=== PATIENT | female | born 1970 | race Native Hawaiian/Other Pacific Islander ===

== ENCOUNTER 2016-12-29 08:55 | Outpatient (CLI) | payer OTHER ==
[~2016-12-29 08:55] MED LIST: CLARITIN10 M1 PO; COLC0.6T6 PO; DESONIDE0.05 % EX; DOXYCYCL HYC100 M4 PO; EPIPEN 2-PAK0.3 MG IJ; FLUC150T PO; GABA300C2 PO; ISOSORB DIN30 MG OR; K-TAB20 MEQ PO; LACTSYP31 PO; MAXAIR AUTOH200 MCG IN; MEDROL DOSEPAK4 MG PO; METO10TA26 PO; METRONIDAZOL0.751 EX; NITROSTAT0.4 MG SL; ONDA4TAB3 PO; PANT40TA PO; PRILOSEC40 MG OR; PROM25TA52 PO; PULMICORT1 MG/2 ML IN; RANI150T78 PO; ROBAXIN500 MG PO; SIMV20TA2 PO; SINGULAIR10 MG PO; SOMA250 MG OR; TERCONAZOLE0.4 % VA; TRAM50TA PO; XOPENEX HFA IN; XOPENEX1.25 MG/3 IN; Z-PAK PO
[2016-12-29 09:20] LABS: PLATELET COUNT 235 K/uL (152-353)
[2016-12-29 09:40] LABS: POTASSIUM 3.6 mmol/L (3.6-5.2); SODIUM 139 mmol/L (136-145)
== END 2016-12-29 09:55 | disposition home or self-care (01) ==
LOC: LABW 08:55
PROVIDERS: Family Medicine
DX: N18.3 Chronic kidney disease, stage 3 (moderate) (principal); R21 Rash and other nonspecific skin eruption; E55.9 Vitamin D deficiency, unspecified; E78.00 Pure hypercholesterolemia, unspecified
CPT/HCPCS: 36415; 80053; 80061; 81000; 82306; 84439; 84443; 84550; 85027

== ENCOUNTER 2017-02-23 10:06 | Outpatient (CLI) | payer OTHER ==
[2017-02-23 10:20] LABS: PLATELET COUNT 225 K/uL (152-353)
[2017-02-23 10:58] LABS: POTASSIUM 3.5 mmol/L (3.6-5.2); SODIUM 140 mmol/L (136-145)
== END 2017-02-23 19:38 | disposition home or self-care (01) ==
LOC: LABW 10:06
PROVIDERS: Internal Medicine Nephrology
DX: N18.3 Chronic kidney disease, stage 3 (moderate) (principal); E56.8 Deficiency of other vitamins
CPT/HCPCS: 36415; 80053; 81000; 82306; 82570; 83970; 84100; 84155; 85027

== ENCOUNTER 2017-03-02 07:54 | Outpatient (CLI) | payer OTHER ==
[2017-03-02 08:32] LABS: PLATELET COUNT 204 K/uL (152-353)
[2017-03-02 08:39] LABS: POTASSIUM 3.3 mmol/L (3.6-5.2); SODIUM 138 mmol/L (136-145)
== END 2017-03-02 19:06 | disposition home or self-care (01) ==
LOC: LABW 07:54
PROVIDERS: Internal Medicine
DX: R68.2 Dry mouth, unspecified (principal); E87.6 Hypokalemia
CPT/HCPCS: 36415; 80053; 84443; 85027

== ENCOUNTER 2017-04-03 10:03 | Outpatient (CLI) | payer OTHER | END 2017-04-03 11:30 | disposition home or self-care (01) | LOC: RESP 10:03 | DX: I34.1 Nonrheumatic mitral (valve) prolapse (principal); R07.89 Other chest pain | CPT/HCPCS: 93306 ==

== ENCOUNTER 2017-04-11 16:09 | Outpatient (CLI) | payer OTHER | END 2017-04-11 19:35 | disposition home or self-care (01) | LOC: LABW 16:09 | DX: K52.89 Other specified noninfective gastroenteritis and colitis (principal); R11.10 Vomiting, unspecified; R19.7 Diarrhea, unspecified | CPT/HCPCS: 82272; 87045; 87205; 87328; 87329; 87493; 87798; 87899 ==

== ENCOUNTER 2017-04-16 10:46 | Outpatient (CLI) | payer OTHER | END 2017-04-16 11:50 | disposition home or self-care (01) | LOC: RAD 10:46 | DX: M54.6 Pain in thoracic spine (principal); M54.5 Low back pain ==

== ENCOUNTER 2017-05-01 08:09 | Outpatient (CLI) | payer OTHER | END 2017-05-01 19:09 | disposition home or self-care (01) | LOC: NM 08:09 | DX: R94.39 Abnormal result of other cardiovascular function study (principal) | CPT/HCPCS: A9500; J2785 ==

== ENCOUNTER 2017-06-08 09:19 | Outpatient (CLI) | payer OTHER ==
[2017-06-08 11:04] LABS: POTASSIUM 3.5 mmol/L (3.6-5.2); SODIUM 141 mmol/L (136-145)
[2017-06-08 11:10] LABS: PLATELET COUNT 213 K/uL (152-353)
== END 2017-06-08 19:09 | disposition home or self-care (01) ==
LOC: LAB 09:19
PROVIDERS: Physician Assistant
DX: E78.4 Other hyperlipidemia (principal); R11.0 Nausea; R73.9 Hyperglycemia, unspecified; N39.0 Urinary tract infection, site not specified
CPT/HCPCS: 80053; 80061; 83036; 84439; 84443; 85027; 87088

== ENCOUNTER 2017-06-29 11:03 | Outpatient (CLI) | payer OTHER ==
[2017-06-29 11:37] LABS: PLATELET COUNT 217 K/uL (152-353)
== END 2017-06-29 12:05 | disposition home or self-care (01) ==
LOC: LABW 11:03
PROVIDERS: Internal Medicine
DX: Z90.5 Acquired absence of kidney (principal); R79.89 Other specified abnormal findings of blood chemistry
CPT/HCPCS: 36415; 80053; 81000; 82043; 82570; 83735; 84100; 84155; 85027

== ENCOUNTER 2017-08-30 12:35 | Outpatient (CLI) | payer OTHER | END 2017-08-30 19:25 | disposition home or self-care (01) | LOC: LABW 12:35 | DX: S99.821A Other specified injuries of right foot, initial encounter (principal); R30.0 Dysuria | CPT/HCPCS: 81000; 87086; 87088 ==

== ENCOUNTER 2017-12-28 09:06 | Outpatient (CLI) | payer OTHER ==
[2017-12-28 09:48] LABS: POTASSIUM 3.4 mmol/L (3.6-5.2)
[2017-12-28 09:55] LABS: PLATELET COUNT 238 K/uL (152-353)
== END 2017-12-28 19:22 | disposition home or self-care (01) ==
LOC: LABW 09:06
PROVIDERS: Internal Medicine
DX: N18.3 Chronic kidney disease, stage 3 (moderate) (principal)
CPT/HCPCS: 36415; 80053; 81000; 82043; 82570; 83735; 84100; 84155; 85027

== ENCOUNTER 2018-02-19 09:20 | Outpatient (CLI) | payer OTHER ==
[2018-02-19 10:01] LABS: PLATELET COUNT 211 K/uL (152-353)
[2018-02-19 10:17] LABS: POTASSIUM 3.9 mmol/L (3.6-5.2)
== END 2018-02-19 22:54 | disposition home or self-care (01) ==
LOC: LABW 09:20
PROVIDERS: Physician Assistant
DX: I10 Essential (primary) hypertension (principal); R73.9 Hyperglycemia, unspecified; E55.9 Vitamin D deficiency, unspecified
CPT/HCPCS: 36415; 80053; 80061; 82306; 83036; 84439; 84443; 85027

== ENCOUNTER 2018-03-18 09:37 | Outpatient (CLI) | payer OTHER | END 2018-03-18 22:49 | disposition home or self-care (01) | LOC: RAD 09:37 | DX: J45.40 Moderate persistent asthma, uncomplicated (principal) ==

== ENCOUNTER 2018-05-09 09:25 | Outpatient (CLI) | payer OTHER | END 2018-05-09 19:28 | disposition home or self-care (01) | LOC: LABW 09:25 | DX: K64.0 First degree hemorrhoids (principal); K59.1 Functional diarrhea | CPT/HCPCS: 82272; 82705; 87015; 87045; 87205; 87324; 87328; 87329; 87449; 87899 ==

== ENCOUNTER 2018-06-18 09:53 | Emergency (ER) | payer OTHER ==
[~2018-06-18] VITALS: Ht 170.2 cm; Wt 74.8 kg
[2018-06-18 10:57] VITALS: BP 133/81; TEMP 98
== END 2018-06-18 10:58 | disposition home or self-care (01) ==
LOC: ED 09:53
DX: R51 Headache (principal)
CPT/HCPCS: 96372; 99283; J1885

== ENCOUNTER 2018-08-18 12:37 | Emergency (ER) | payer OTHER ==
[~2018-08-18] VITALS: Ht 170.2 cm; Wt 74.8 kg
[2018-08-18 12:45] VITALS: TEMP 98.1
[2018-08-18 14:55] VITALS: BP 122/75
== END 2018-08-18 14:55 | disposition home or self-care (01) ==
LOC: ED 12:37
DX: H10.89 Other conjunctivitis (principal); B96.89 Other specified bacterial agents as the cause of diseases classified elsewhere
CPT/HCPCS: 99282

== ENCOUNTER 2018-09-10 18:36 | Outpatient (CLI) | payer OTHER | END 2018-09-10 22:32 | disposition home or self-care (01) | LOC: LAB 18:36 | DX: N30.01 Acute cystitis with hematuria (principal) | CPT/HCPCS: 81000; 87077; 87086; 87088; 87186 ==

== ENCOUNTER 2018-12-03 14:02 | Outpatient (CLI) | payer OTHER ==
[2018-12-03 14:51] LABS: POTASSIUM 3.6 mmol/L (3.6-5.2)
== END 2018-12-03 23:02 | disposition home or self-care (01) ==
LOC: LABW 14:02
PROVIDERS: Physician Assistant
DX: N18.3 Chronic kidney disease, stage 3 (moderate) (principal)
CPT/HCPCS: 36415; 80053

== ENCOUNTER 2018-12-06 09:27 | Outpatient (CLI) | payer OTHER | END 2018-12-06 19:12 | disposition home or self-care (01) | LOC: LABW 09:27 | DX: N18.3 Chronic kidney disease, stage 3 (moderate) (principal) | CPT/HCPCS: 83036 ==

== ENCOUNTER 2019-04-22 15:34 | Outpatient (CLI) | payer OTHER | END 2019-04-22 20:34 | disposition home or self-care (01) | LOC: RAD 15:34 | DX: J45.40 Moderate persistent asthma, uncomplicated (principal) ==

== ENCOUNTER 2019-05-05 13:14 | Outpatient (CLI) | payer OTHER ==
[2019-05-05 13:54] LABS: PLATELET COUNT 235 K/uL (152-353)
[2019-05-05 13:57] LABS: POTASSIUM 3.7 mmol/L (3.6-5.2)
== END 2019-05-05 19:19 | disposition home or self-care (01) ==
LOC: LABW 13:14
PROVIDERS: Internal Medicine
DX: N18.3 Chronic kidney disease, stage 3 (moderate) (principal); R30.0 Dysuria
CPT/HCPCS: 80053; 81000; 82043; 82306; 82570; 83735; 83970; 84100; 84155; 85027; 87088

== ENCOUNTER 2019-05-14 06:36 | Outpatient (CLI) | payer OTHER ==
[2019-05-14 07:29] LABS: PLATELET COUNT 215 K/uL (152-353)
[2019-05-14 08:24] LABS: POTASSIUM 3.4 mmol/L (3.6-5.2)
== END 2019-05-14 23:30 | disposition home or self-care (01) ==
LOC: LABW 06:36
PROVIDERS: Physician Assistant
DX: R63.5 Abnormal weight gain (principal); I51.7 Cardiomegaly
CPT/HCPCS: 36415; 80053; 82306; 84443; 85027

== ENCOUNTER 2019-05-14 06:44 | Outpatient (CLI) | payer OTHER | END 2019-05-14 23:30 | disposition home or self-care (01) | LOC: LABW 06:44 → RAD 06:44 | DX: R05 Cough (principal) ==

== ENCOUNTER 2019-07-04 09:48 | Outpatient (CLI) | payer OTHER ==
[2019-07-04 10:36] LABS: PLATELET COUNT 219 K/uL (152-353)
[2019-07-04 10:56] LABS: POTASSIUM 3.1 mmol/L (3.6-5.2)
== END 2019-07-04 23:43 | disposition home or self-care (01) ==
LOC: LABW 09:48
PROVIDERS: Physician Assistant
DX: R63.4 Abnormal weight loss (principal); I10 Essential (primary) hypertension; R53.83 Other fatigue
CPT/HCPCS: 36415; 80053; 83036; 84443; 85007; 85027; 85651; 86644; 86645

== ENCOUNTER 2019-07-28 08:13 | Outpatient (CLI) | payer OTHER | END 2019-07-28 21:50 | disposition home or self-care (01) | LOC: LABW 08:13 | DX: K59.1 Functional diarrhea (principal); K64.0 First degree hemorrhoids | CPT/HCPCS: 82272; 82705; 83630; 87015; 87045; 87324; 87328; 87329; 87449; 87899 ==

== ENCOUNTER 2019-08-11 09:33 | Outpatient (CLI) | payer OTHER ==
[2019-08-11 14:51] LABS: POTASSIUM 3.3 mmol/L (3.6-5.2)
== END 2019-08-11 20:20 | disposition home or self-care (01) ==
LOC: CT 09:33 → LABW 09:33 → CT 10:00
PROVIDERS: Internal Medicine Gastroenterology
DX: R10.32 Left lower quadrant pain (principal); E16.2 Hypoglycemia, unspecified; E87.6 Hypokalemia
CPT/HCPCS: 36415; 80048; 83036

== ENCOUNTER 2019-08-13 11:43 | Day surgery (SDC) | payer OTHER ==
[2019-08-13 14:19] LABS: PLATELET COUNT 202 K/uL (152-353)
[2019-08-13 14:20] LABS: POTASSIUM 3.2 mmol/L (3.6-5.2)
== END 2019-08-13 16:30 | disposition home or self-care (01) ==
LOC: OR 11:43
PROVIDERS: Internal Medicine Gastroenterology
PROC: 0DB68ZZ Excision of Stomach, Via Natural or Artificial Opening Endoscopic (ICD-10-PCS; principal; 2019-08-13)
PROC: 0D738ZZ Dilation of Lower Esophagus, Via Natural or Artificial Opening Endoscopic (ICD-10-PCS; 2019-08-13)
DX: K29.50 Unspecified chronic gastritis without bleeding (principal); K31.7 Polyp of stomach and duodenum; K21.0 Gastro-esophageal reflux disease with esophagitis; K22.4 Dyskinesia of esophagus; K22.2 Esophageal obstruction; R13.19 Other dysphagia; R10.12 Left upper quadrant pain; R10.13 Epigastric pain; R11.2 Nausea with vomiting, unspecified
CPT/HCPCS: 80053; 85027; 93005; J2001; J2250; J2704

== ENCOUNTER 2019-10-16 07:48 | Outpatient (CLI) | payer OTHER ==
[2019-10-16 08:33] LABS: PLATELET COUNT 202 K/uL (152-353)
[2019-10-16 09:05] LABS: POTASSIUM 3.6 mmol/L (3.6-5.2)
== END 2019-10-16 19:10 | disposition home or self-care (01) ==
LOC: LABW 07:48
PROVIDERS: Internal Medicine
DX: N18.3 Chronic kidney disease, stage 3 (moderate) (principal); J45.40 Moderate persistent asthma, uncomplicated
CPT/HCPCS: 36415; 80053; 81000; 82306; 82570; 82785; 83735; 83970; 84100; 84155; 84439; 84443; 85027; 85651

== ENCOUNTER 2019-11-11 11:12 | Outpatient (CLI) | payer OTHER ==
[2019-11-11 11:27] LABS: PLATELET COUNT 205 K/uL (152-353)
[2019-11-11 11:38] LABS: POTASSIUM 3.7 mmol/L (3.6-5.2)
== END 2019-11-11 20:09 | disposition home or self-care (01) ==
LOC: LABW 11:12
PROVIDERS: Internal Medicine
DX: N18.3 Chronic kidney disease, stage 3 (moderate) (principal)
CPT/HCPCS: 36415; 80053; 81000; 82570; 84155; 85027

== ENCOUNTER 2019-12-04 08:30 | Outpatient (CLI) | payer OTHER | END 2019-12-04 22:27 | disposition home or self-care (01) | LOC: CT 08:30 | DX: R30.9 Painful micturition, unspecified (principal); R10.9 Unspecified abdominal pain; N18.3 Chronic kidney disease, stage 3 (moderate) ==

== ENCOUNTER 2020-01-14 10:08 | Outpatient (CLI) | payer OTHER ==
[2020-01-14 10:35] LABS: PLATELET COUNT 208 K/uL (152-353)
[2020-01-14 10:55] LABS: POTASSIUM 3.6 mmol/L (3.6-5.2)
== END 2020-01-14 20:55 | disposition home or self-care (01) ==
LOC: LABW 10:08
PROVIDERS: Nurse Practitioner
DX: N18.3 Chronic kidney disease, stage 3 (moderate) (principal); R53.83 Other fatigue; E55.9 Vitamin D deficiency, unspecified; R30.9 Painful micturition, unspecified
CPT/HCPCS: 36415; 80053; 81000; 82306; 82570; 82607; 82746; 84155; 84439; 84443; 85027; 87086; 87088

== ENCOUNTER 2020-01-27 08:06 | Outpatient (CLI) | payer OTHER ==
[2020-01-27 08:41] LABS: PLATELET COUNT 201 K/uL (152-353)
[2020-01-27 08:43] LABS: POTASSIUM 3.7 mmol/L (3.6-5.2)
== END 2020-01-27 19:34 | disposition home or self-care (01) ==
LOC: LABW 08:06
PROVIDERS: Internal Medicine
DX: I12.9 Hypertensive chronic kidney disease with stage 1 through stage 4 chronic kidney disease, or unspecified chronic kidney disease (principal); E78.5 Hyperlipidemia, unspecified; E55.9 Vitamin D deficiency, unspecified; N18.3 Chronic kidney disease, stage 3 (moderate)
CPT/HCPCS: 36415; 80053; 80061; 81000; 82306; 82550; 83735; 84439; 84443; 84550; 85027; 86038

== ENCOUNTER 2020-07-06 12:33 | Outpatient (CLI) | payer OTHER ==
[2020-07-06 13:03] LABS: PLATELET COUNT 213 K/uL (152-353)
[2020-07-06 13:22] LABS: POTASSIUM 3.5 mmol/L (3.6-5.2)
== END 2020-07-06 20:58 | disposition home or self-care (01) ==
LOC: LABW 12:33
PROVIDERS: Nurse Practitioner
DX: N18.3 Chronic kidney disease, stage 3 (moderate) (principal); R63.5 Abnormal weight gain
CPT/HCPCS: 36415; 80053; 81000; 82330; 82570; 83036; 83735; 84100; 84155; 84439; 84443; 85027

== ENCOUNTER 2020-07-12 08:47 | Outpatient (CLI) | payer OTHER | END 2020-07-12 20:27 | disposition home or self-care (01) | LOC: MRI 08:47 | DX: N28.9 Disorder of kidney and ureter, unspecified (principal) | CPT/HCPCS: A9576 ==

== ENCOUNTER 2020-08-30 12:39 | Outpatient (CLI) | payer OTHER | END 2020-08-30 23:44 | disposition home or self-care (01) | LOC: RESP 12:39 | DX: I34.1 Nonrheumatic mitral (valve) prolapse (principal); I10 Essential (primary) hypertension; I34.0 Nonrheumatic mitral (valve) insufficiency; E78.2 Mixed hyperlipidemia; E66.3 Overweight ==

== ENCOUNTER 2020-09-07 16:05 | Outpatient (CLI) | payer OTHER ==
[2020-09-07 16:21] LABS: PLATELET COUNT 231 K/uL (152-353)
[2020-09-07 16:40] LABS: POTASSIUM 3.9 mmol/L (3.6-5.2)
== END 2020-09-07 19:17 | disposition home or self-care (01) ==
LOC: LABW 16:05
PROVIDERS: Nurse Practitioner
DX: R53.83 Other fatigue (principal)
CPT/HCPCS: 36415; 80053; 81000; 82043; 82306; 82570; 82607; 83735; 84439; 84443; 85027

== ENCOUNTER 2020-10-01 10:46 | Outpatient (CLI) | payer OTHER | END 2020-10-01 19:11 | disposition home or self-care (01) | LOC: LABW 10:46 | DX: N18.31 Chronic kidney disease, stage 3a (principal) | CPT/HCPCS: 81000 ==

== ENCOUNTER 2020-11-24 10:11 | Day surgery (SDC) | payer OTHER ==
[2020-11-22 09:03] LABS: POTASSIUM 3.8 mmol/L (3.6-5.2)
[2020-11-22 09:25] LABS: PLATELET COUNT 182 K/uL (152-353)
== END 2020-11-24 14:10 | disposition home or self-care (01) ==
LOC: OR 10:11
PROVIDERS: ATTEND Internal Medicine Gastroenterology
PROC: 0DB68ZZ Excision of Stomach, Via Natural or Artificial Opening Endoscopic (ICD-10-PCS; principal; 2020-11-24)
PROC: 0D738ZZ Dilation of Lower Esophagus, Via Natural or Artificial Opening Endoscopic (ICD-10-PCS; 2020-11-24)
DX: K21.00 Gastro-esophageal reflux disease with esophagitis, without bleeding (principal); K22.2 Esophageal obstruction; K29.50 Unspecified chronic gastritis without bleeding; K22.4 Dyskinesia of esophagus; R13.19 Other dysphagia; R10.11 Right upper quadrant pain
CPT/HCPCS: 80053; 85027; J2704

== ENCOUNTER 2021-01-03 12:39 | Outpatient (CLI) | payer OTHER | END 2021-01-03 22:45 | disposition home or self-care (01) | LOC: MRI 12:39 | PROVIDERS: ATTEND Internal Medicine | DX: N28.1 Cyst of kidney, acquired (principal) ==

== ENCOUNTER 2021-02-10 10:17 | Outpatient (CLI) | payer OTHER ==
[2021-02-10 10:46] LABS: PLATELET COUNT 203 K/uL (152-353)
[2021-02-10 10:58] LABS: POTASSIUM 3.7 mmol/L (3.6-5.2)
== END 2021-02-10 22:10 | disposition home or self-care (01) ==
LOC: LAB 10:17
PROVIDERS: ATTEND Physician Assistant
DX: N18.30 Chronic kidney disease, stage 3 unspecified (principal); R53.83 Other fatigue; E78.5 Hyperlipidemia, unspecified; Z13.29 Encounter for screening for other suspected endocrine disorder; Z13.0 Encounter for screening for diseases of the blood and blood-forming organs and certain disorders involving the immune mechanism; E55.9 Vitamin D deficiency, unspecified; M25.50 Pain in unspecified joint; M25.40 Effusion, unspecified joint; M25.642 Stiffness of left hand, not elsewhere classified; M25.641 Stiffness of right hand, not elsewhere classified; R30.0 Dysuria
CPT/HCPCS: 80053; 80061; 82306; 82607; 83036; 84439; 84443; 85027; 86200; 86430; 87086; 87088

== ENCOUNTER 2021-02-17 10:19 | Outpatient (CLI) | payer OTHER | END 2021-02-17 19:33 | disposition home or self-care (01) | LOC: RAD 10:19 | PROVIDERS: ATTEND Physician Assistant | DX: M25.40 Effusion, unspecified joint (principal) | CPT/HCPCS: 82670; 83001; 84144; 84403 ==

== ENCOUNTER 2021-02-17 17:55 | Outpatient (CLI) | payer OTHER | END 2021-02-17 19:38 | disposition home or self-care (01) | LOC: LAB 17:55 | PROVIDERS: ATTEND Physician Assistant | DX: R63.5 Abnormal weight gain (principal); L68.0 Hirsutism; Z87.42 Personal history of other diseases of the female genital tract | CPT/HCPCS: 82670; 83001; 84144; 84403 ==

== ENCOUNTER 2021-07-17 10:07 | Emergency (ER) | payer OTHER ==
[~2021-07-17] VITALS: Ht 170.2 cm; Wt 72.6 kg
[2021-07-17 11:07] LABS: PLATELET COUNT 121 K/uL (152-353)
[2021-07-17 13:20] VITALS: BP 129/72; TEMP 100.2
== END 2021-07-17 13:20 | disposition home or self-care (01) ==
LOC: ED 10:07
PROVIDERS: Hospitalist
DX: E86.0 Dehydration (principal); N30.90 Cystitis, unspecified without hematuria; E87.6 Hypokalemia; U07.1 COVID-19
CPT/HCPCS: 80048; 81000; 85007; 85027; 87635; 96360; 96365; 96375; 99284; J0696; J2405; U0003

== ENCOUNTER 2021-07-19 09:37 | Emergency (ER) | payer OTHER ==
[~2021-07-19] VITALS: Ht 170.2 cm; Wt 72.6 kg
[2021-07-19 09:54] VITALS: BP 137/83; TEMP 97.3
[2021-07-19 10:41] LABS: PLATELET COUNT 117 K/uL (152-353)
[2021-07-19 10:54] LABS: POTASSIUM 4.1 mmol/L (3.6-5.2); SODIUM 131 mmol/L (136-145)
== END 2021-07-19 12:05 | disposition home or self-care (01) ==
LOC: ED 09:37
PROVIDERS: Emergency Medicine Emergency Medical Services
DX: J18.9 Pneumonia, unspecified organism (principal); R09.1 Pleurisy; K21.9 Gastro-esophageal reflux disease without esophagitis; U07.1 COVID-19
CPT/HCPCS: 36600; 80048; 82805; 83735; 84484; 85027; 87635; 93005; 94664; 96360; 96375; 99284; J3490; U0003

== ENCOUNTER 2021-08-05 08:16 | Outpatient (CLI) | payer OTHER | END 2021-08-05 19:01 | disposition home or self-care (01) | LOC: MRI 08:16 | PROVIDERS: ATTEND Internal Medicine | DX: Z90.5 Acquired absence of kidney (principal) ==

== ENCOUNTER → 2021-08-10 | Outpatient (CLI) | payer OTHER | LOC: RAD 13:03 | PROVIDERS: ATTEND Internal Medicine Pulmonary Disease | DX: J18.9 Pneumonia, unspecified organism (principal); J12.82 Pneumonia due to coronavirus disease 2019 ==

== ENCOUNTER 2021-10-17 16:32 | Outpatient (CLI) | payer OTHER ==
[2021-10-17 16:57] LABS: PLATELET COUNT 216 K/uL (152-353)
[2021-10-17 17:05] LABS: POTASSIUM 3.9 mmol/L (3.6-5.2)
== END 2021-10-17 19:46 | disposition home or self-care (01) ==
LOC: LABW 16:32
PROVIDERS: ATTEND Family Medicine
DX: R10.9 Unspecified abdominal pain (principal); K59.00 Constipation, unspecified; K57.90 Diverticulosis of intestine, part unspecified, without perforation or abscess without bleeding
CPT/HCPCS: 36415; 80053; 81000; 85027

== ENCOUNTER 2022-01-02 12:11 | Outpatient (CLI) | payer OTHER ==
[2022-01-02 12:34] LABS: PLATELET COUNT 208 K/uL (152-353)
== END 2022-01-02 19:01 | disposition home or self-care (01) ==
LOC: LABW 12:11
PROVIDERS: ATTEND Internal Medicine Pulmonary Disease
DX: R06.02 Shortness of breath (principal); J44.9 Chronic obstructive pulmonary disease, unspecified; I10 Essential (primary) hypertension; J45.40 Moderate persistent asthma, uncomplicated
CPT/HCPCS: 36415; 82785; 85027; 86003

== ENCOUNTER 2022-04-25 07:25 | Outpatient (CLI) | payer OTHER ==
[2022-04-25 08:55] LABS: PLATELET COUNT 187 K/uL (152-353)
== END 2022-04-25 17:03 ==
LOC: MRI 07:25
PROVIDERS: ATTEND Internal Medicine
DX: E83.51 Hypocalcemia (principal); R63.5 Abnormal weight gain; N18.31 Chronic kidney disease, stage 3a
CPT/HCPCS: 36415; 80053; 81000; 82306; 82330; 82570; 83036; 83735; 83970; 84100; 84156; 84439; 84443; 85027

== ENCOUNTER 2022-05-04 10:41 | Outpatient (CLI) | payer OTHER | END 2022-05-04 20:00 | disposition home or self-care (01) | LOC: RAD 10:41 | PROVIDERS: ATTEND Family Medicine | DX: M79.641 Pain in right hand (principal) ==

== ENCOUNTER 2022-05-12 09:13 | Outpatient (CLI) | payer OTHER | END 2022-05-12 21:10 | disposition home or self-care (01) | LOC: LABW 09:13 | PROVIDERS: ATTEND Family Medicine | DX: N18.30 Chronic kidney disease, stage 3 unspecified (principal); M19.90 Unspecified osteoarthritis, unspecified site; M79.641 Pain in right hand | CPT/HCPCS: 36415; 84550 ==

== ENCOUNTER 2022-07-04 08:48 | Outpatient (CLI) | payer OTHER ==
[2022-07-04 09:14] LABS: PLATELET COUNT 195 K/uL (152-353)
[2022-07-04 09:52] LABS: POTASSIUM 4.4 mmol/L (3.6-5.2)
== END 2022-07-04 19:53 | disposition home or self-care (01) ==
LOC: RAD 08:48
PROVIDERS: ATTEND Nurse Practitioner Family
DX: N18.2 Chronic kidney disease, stage 2 (mild) (principal); R63.5 Abnormal weight gain; E55.9 Vitamin D deficiency, unspecified; H16.223 Keratoconjunctivitis sicca, not specified as Sjogren's, bilateral; M06.4 Inflammatory polyarthropathy; M54.2 Cervicalgia; M54.51 Vertebrogenic low back pain
CPT/HCPCS: 36415; 80053; 81002; 82043; 82306; 82330; 82550; 82570; 83036; 83735; 83970; 84100; 84156; 84439; 84443; 84550; 85027

== ENCOUNTER → 2022-08-29 | Outpatient (CLI) | payer OTHER | LOC: RESP 08:38 | PROVIDERS: ATTEND Nurse Practitioner Family | DX: J44.9 Chronic obstructive pulmonary disease, unspecified (principal); M35.05 Sjogren syndrome with inflammatory arthritis; Z79.899 Other long term (current) drug therapy ==

== ENCOUNTER 2022-10-03 07:23 | Outpatient (CLI) | payer OTHER | END 2022-10-03 19:12 | disposition home or self-care (01) | LOC: LABW 07:23 → RESP 07:23 | PROVIDERS: ATTEND Nurse Practitioner Family | DX: N18.2 Chronic kidney disease, stage 2 (mild) (principal); E83.51 Hypocalcemia; M06.4 Inflammatory polyarthropathy; M35.05 Sjogren syndrome with inflammatory arthritis; M47.816 Spondylosis without myelopathy or radiculopathy, lumbar region; Z79.899 Other long term (current) drug therapy; R94.2 Abnormal results of pulmonary function studies | CPT/HCPCS: 36415; 82306; 82330; 82550; 83735; 83970; 84100 ==

== ENCOUNTER 2022-10-27 08:20 | Outpatient (CLI) | payer OTHER ==
[2022-10-27 08:58] LABS: PLATELET COUNT 197 K/uL (152-353)
[2022-10-27 09:17] LABS: POTASSIUM 3.7 mmol/L (3.6-5.2)
== END 2022-10-27 19:16 | disposition home or self-care (01) ==
LOC: LABW 08:20
PROVIDERS: ATTEND Family Medicine
DX: R01.1 Cardiac murmur, unspecified (principal); N18.30 Chronic kidney disease, stage 3 unspecified; R53.83 Other fatigue; R63.5 Abnormal weight gain; Z78.0 Asymptomatic menopausal state; I12.9 Hypertensive chronic kidney disease with stage 1 through stage 4 chronic kidney disease, or unspecified chronic kidney disease
CPT/HCPCS: 36415; 80053; 80061; 83880; 84402; 84403; 84439; 84443; 85027

== ENCOUNTER 2022-12-11 12:24 | Outpatient (CLI) | payer OTHER | END 2022-12-11 19:05 | disposition home or self-care (01) | LOC: MRI 12:24 | PROVIDERS: ATTEND Internal Medicine | DX: N28.1 Cyst of kidney, acquired (principal) ==

== ENCOUNTER 2023-03-30 13:17 | Outpatient (CLI) | payer OTHER | END 2023-03-30 19:22 | disposition home or self-care (01) | LOC: RAD 13:17 | PROVIDERS: ATTEND Nurse Practitioner Family | DX: E55.9 Vitamin D deficiency, unspecified (principal); E56.8 Deficiency of other vitamins; Z79.899 Other long term (current) drug therapy; M35.05 Sjogren syndrome with inflammatory arthritis ==

== ENCOUNTER 2023-06-03 10:37 | Emergency (ER) | payer OTHER ==
[~2023-06-03] VITALS: Ht 170.2 cm; Wt 86.2 kg
[2023-06-03 10:47] VITALS: BP 125/62; TEMP 98.7
== END 2023-06-03 12:05 | disposition home or self-care (01) ==
LOC: ED 10:37
DX: L55.9 Sunburn, unspecified (principal)
CPT/HCPCS: 99283; J1100

== ENCOUNTER 2023-09-10 10:31 | Outpatient (CLI) | payer OTHER | END 2023-09-10 19:15 | disposition home or self-care (01) | LOC: CT 10:31 | PROVIDERS: ATTEND Internal Medicine Pulmonary Disease | DX: J32.0 Chronic maxillary sinusitis (principal) ==